=== PATIENT | female | born 1980 | race Caucasian/White ===

== ENCOUNTER 2025-01-28 15:12 | Emergency (ER) | payer OTHER, SELFPAY ==
--- NOTE | ~2025-01-28 | XR_ITS ---
XR ankle RT min 3V 01/28/2025 16:03 Indication: Right ankle pain Procedure: 4 views right ankle Comparison: No prior studies for comparison. Findings: There is a nondisplaced there is an avulsion fracture distal tip of the fibula, age indeterminate. Talar dome is normal. Spiral fracture of the distal tibia. There is a lag screw transfixing the medial malleolus. Impression: 1: Nondisplaced spiral fracture distal tibial metadiaphysis. 2: Age-indeterminate avulsion fracture distal aspect of the fibula. Reviewed, dictated and finalized at location O. Impression: 1: Nondisplaced spiral fracture distal tibial metadiaphysis. 2: Age-indeterminate avulsion fracture distal aspect of the fibula.
--- NOTE | ~2025-01-28 | XR_ITS ---
XR foot RT min 3V 01/28/2025 17:17 Indication: Right foot pain after trauma Procedure: 4 views right foot Comparison: 01/28/2025 Findings: Distal tibial fracture reidentified. No other fracture or traumatic malalignment. Lisfranc joint intact. Impression: 1: Oblique nondisplaced extra-articular spiral fracture distal aspect of the tibia. Reviewed, dictated and finalized at location O. Impression: 1: Oblique nondisplaced extra-articular spiral fracture distal aspect of the ti chiquis.
--- NOTE | ~2025-01-28 | XR_ITS ---
XR tibia fibula RT 2V 01/28/2025 17:17 Indication: Right leg pain Procedure: 2 views right tibia/fibula Comparison: No prior studies for comparison. Findings: There is an oblique nondisplaced extra-articular fracture distal aspect of the tibia. There is a lag screw transfixing the medial malleolus. No other fractures. Impression: 1: Transverse nondisplaced extra-articular spiral fracture distal aspect of the tibia involving the metadiaphysis. Reviewed, dictated and finalized at location O. Impression: 1: Transverse nondisplaced extra-articular spiral fracture distal aspect of the tibia involving the metadiaphysis.
--- NOTE | ~2025-01-28 | XR_ITS ---
XR hand RT min 3V 01/28/2025 17:17 INDICATION: Right hand injury PROCEDURE: 3 views right hand COMPARISON: No prior studies for comparison. FINDINGS: Fracture, dislocation or subluxation is not identified. The soft tissues appear within normal limits. No foreign bodies are identified. IMPRESSION: 1: NO ACUTE BONE OR JOINT ABNORMALITY IDENTIFIED. Reviewed, dictated and finalized at location O.
--- NOTE | ~2025-01-28 | XR_ITS ---
XR knee RT min 4V 01/28/2025 17:39 INDICATION: Right knee pain PROCEDURE: 4 views right knee COMPARISON: No prior studies for comparison. FINDINGS: Fracture, dislocation or subluxation is not identified. The soft tissues appear within normal limits. No foreign bodies are identified. IMPRESSION: 1: NO ACUTE BONE OR JOINT ABNORMALITY IDENTIFIED. Reviewed, dictated and finalized at location O.
--- NOTE | ~2025-01-28 | CT_ITS ---
EXAMINATION: CT ankle RT wo con DATE: 01/28/2025 19:34 INDICATION: Tibia fracture TECHNIQUE: Computed tomography (CT) of the right ankle was performed without intravenous contrast. The dose-length product was 522.90 mGy-cm. COMPARISON: Right ankle series dated 01/28/2025 FINDINGS: There is a comminuted mildly displaced intra-articular fracture distal aspect of the tibia. No abnormality the talus.There is a single screw transfixing the medial malleolus. The surrounding osseous structures are unremarkable. There is mild surrounding subcutaneous edema. IMPRESSION: 1. Oblique mildly displaced intra-articular distal tibial fracture. Reviewed, dictated and finalized at location O.
[2025-01-28 15:42] VITALS: BP 113/48; PULSE 94; RESP 16; TEMP 36.3; O2SAT 99
--- OUTSIDE RECORDS SUMMARY | 2025-01-28 15:52 | XMS_ITS | Clinical Summary ---
Author Organization [facility] Address [address] [place] [id number] Care Team Providers Care Family Manager Name Role Phone None, Provider MD Primary Care Provider Unavaila ble Allergies Active Allergy Reactions Criticality Noted Date Comments Codesasha Hives 06/21/2020 Social History Tobacco Use Types Packs/Day Years Used Date Smoking Tobacco: Every Day Cigarettes Smokeless Tobacco: Never Alcohol Use Standard Drinks/Week Comments Not Currently 0 (1 standard drink = 0.6 oz pur e alcohol) Comments No Sex and Gender Information Value Date Recorded Sex Assigned at Not on file Legal Sex Female 7:19 PM CDT Gender Identity Not on file Sexual Orientation Not on file Last Filed Vital Signs Vital Sign Reading Time Taken Comments Blood Pressure 150/103 10/31/2020 12:19 PM CDT Pulse 103 10/31/2020 12:19 PM CDT Temperature 36.8 C (98.3 F) 10/31/2020 12:19 PM CDT Respiratory Rate 20 10/31/2020 12:19 PM CDT Oxygen Saturation 98% 10/31/2020 12:19 PM CDT Inhaled Oxygen Concentration - - Weight 81.6 kg (180 lb) 10/31/2020 12:19 PM CDT Height 165.1 cm (5' 5) 10/31/2020 12:19 PM CDT Body Mass Index 29.95 10/31/2020 12:19 PM CDT Plan of Treatment Health Maintenance Due Date Last Done Comments Cervical Cancer Screening Pa p Smear (Age 30 to 64) Every 3 Years 1980 Annual Physical 1983 Hepatitis C 1998 DTaP, Tdap and Td Vaccines ( 1 - Tdap) 1999 Hepatitis B Vaccines (1 of 3 - 19+ 3-dose series) 1999 Pneumococcal Vaccine: Pediat rics (0 to 5 Years) and At-Risk Patients (6 to 49 Years) (1 of 2 - PCV) 1999 HPV Vaccines (1 - 3-dose SCD M series) 2007 Cervical Cancer Screening [place] with HPV Testing (Age 30 to 64) Every 5 Years 2010 Cervical Cancer Screening with HPV 2010 Mammogram Screening 2020 COVID-19 Vaccine (2023-2 5 season) 2024 Meningococcal B Vaccine Aged Out No l onger eligible based on patient's age to complete this topic Meningococcal Vaccine Aged Out No demond fallon eligible based on patient's age to complete this topic RSV Immunizations Under 20 Months Aged Out No longer eligible based on patient's age to complete this topic Insurance Care Teams Family Manager Relationship Specialty Start Date End Date None, Provider, PCP - General 09/07/18
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
[2025-01-28] MEDS: HYDROcodone/acetaminophen (*CRX) 5-325 MG TABLET 1 TAB PO ×2 (16:54→19:37)
[2025-01-28 16:56] VITALS: BP 130/86; PULSE 86; RESP 18; O2SAT 100
[2025-01-28 17:44] VITALS: BP 121/83; PULSE 96; RESP 17; O2SAT 100
[2025-01-28 21:00] VITALS: PULSE 91; RESP 15; O2SAT 97
== END 2025-01-28 22:20 | disposition home or self-care (01) ==
PROVIDERS: Emergency Provider Registered Nurse
DX: S82.391A Other fracture of lower end of right tibia, initial encounter for closed fracture (principal); S52.551A Other extraarticular fracture of lower end of right radius, initial encounter for closed fracture; Z90.711 Acquired absence of uterus with remaining cervical stump; W18.39XA Other fall on same level, initial encounter
CPT/HCPCS: 29125; 29515; 73130; 73564; 73590; 73610; 73630; 73700; 99284; A9270